=== PATIENT | male | born 1950 | race Caucasian/White ===

== ENCOUNTER → 2021-05-04 12:48 | Outpatient (BNVA) | payer BC, SELFPAY | PROVIDERS: PCP Internal Medicine; Visit Provider Nurse Practitioner Family | DX: G56.02 Carpal tunnel syndrome, left upper limb (principal); G43.109 Migraine with aura, not intractable, without status migrainosus; Z79.899 Other long term (current) drug therapy | CPT/HCPCS: 99212 ==

== ENCOUNTER 2024-09-20 13:10 | Outpatient (AMB) | payer BC, SELFPAY ==
--- OUTSIDE RECORDS SUMMARY | 2024-09-20 13:13 | XMS_ITS | Clinical Summary ---
Author Organization [address] [facility] Address [address] [place] [address] Phone Care Team Providers Care Bar Useful Or Busser Name Role Phone FranciscoPhil schneider Primary Care Provider [phone] Allergies Active Allergy Reactions Criticality Noted Date Comments Bee Venom Protein (Honey Bee) 06/20/2017 Lisinopril Other 05/26/2017 Pinching in throat Oxycodone Itching,Hives 05/26/2017 Medications ALPRAZolam (NIRAVAM) 0.25 mg dispersible tablet Take 0.25 mg by mouth at bedtime as needed. Active aspirin 81 mg EC tablet Take 81 mg by mouth daily. Active atorvastatin (LIPITOR) 40 mg tablet Take 40 mg by mouth daily. Active butalbital-aceta minophen-caffein e (ESGIC) 50-325-40 mg per capsule Take 1 Cap by mouth every 4 hours as needed. Active losartan (COZAAR) 50 mg tablet Take 50 mg by mouth daily. Active metFORMIN (GLUMETZA) 1,000 mg 24 hr tablet Take 1,000 mg by mouth 2 times daily. Active metoprolol succinate (TOPROL-XL) 25 mg 24 hr tablet TAKE 1/2 TABLET THREE TIMESDAILY (DOSE CHANGE, 5.23.24) 135 tablet 2 5 Active sertraline (ZOLOFT) 25 mg tablet Take 1.5 tablets (37.5 mg total) by mouth 1 (one) time each day. Active omeprazole (PriLOSEC) [address] capsule Take 1 capsule (20 mg total) by mouth 1 (one) time each day. Do not crush or chew. Active Active Problems Problem Noted Date Diagnosed Date Shortness of breath 04/26/2024 Assessment & Plan (07/20/2024 12:50 PM EDT): He had shortness of breath for 3 weeks few month ago and symptom has subsided spontaneously. There are no evidence of volume overload. I will check BNP level. Orders: ECG 12 lead B-type natriuretic peptide; Future Assessment & Plan (04/26/2024 12:04 PM EDT): Highly likely that this is in the setting of uncontrolled anxiety. The patient has no shortness of breath or anginal symptoms when he is exerting himself. He is extremely active and feels his best when he is exercising. He does inform me that he feels a short of breath when he is sedentary at home alone with his thoughts. He does endorse improvement in his symptoms after taking as needed lorazepam which is prescribed by his PCP. He had recent cardiac testing outlined above which was reassuring and we have again reviewed these results and the patient was grateful. Chest pain 02/16/2021 Overview (12/23/2023): Last Assessment & Plan: This is not angina. I suspect he could have premature heartbeats causing pounding sensation. There is no further ischemia work-up needed. I will schedule 24 hours Holter monitor. We will continue same medication. Assessment & Plan (07/20/2024 12:50 PM EDT): Intermittent punch sensation likely musculoskeletal discomfort. This is not angina. There is no need for further workup. Assessment & Plan (04/26/2024 12:04 PM EDT): Orders: ECG 12 lead Assessment & Plan (01/26/2024 4:45 PM EST): Chest pain was nonischemic and coronary artery CTA 2 years ago showed only minimal plaque. Alopecia 06/20/2017 Anxiety 06/20/2017 Assessment & Plan (04/26/2024 12:04 PM EDT): Patient does have significant anxiety. He is currently titrating medications such as Zoloft and alprazolam as he is hesitant to stay on these long-term because of potential side effects that he has researched. I did encourage him to continue to follow with his prescriber and to pursue other forms of anxiety management as it does appear most of his symptoms are driven by anxiety. Beta thalassemia ([facility] V24, [facility] V28) 08/2017 Carpal tunnel syndrome 06/20/2017 Overview (12/23/2023): 07/2012 NCS DDD (degenerative disc disease), cervical 2017 Diabetes mellitus type 2 wit h neurological manifestations ([facility] V24, [facility] V28) 06/20/2017 GERD (gastroesophageal reflux disease) 8 Hemochromatosis 06/20/2017 Hyperlipidemia 06/20/2017 Overview (12/23/2023): Last Assessment & Plan: Well-controlled. Assessment & Plan (04/26/2024 12:04 PM EDT): He will continue on his current dose of statin therapy. He recently had fasting lipid profile approximately 1 month ago with favorable results. Assessment & Plan (01/26/2024 4:45 PM EST): Will target LDL 100. Hypertension 06/20/2017 Overview (12/23/2023): Last Assessment & Plan: Well-controlled. Assessment & Plan (07/20/2024 12:50 PM EDT): Well-controlled. His elevated BP sometimes driven by his anxiety. Assessment & Plan (04/26/2024 12:04 PM EDT): Mildly elevated during today's exam with a reading of 140/70 however the patient is extremely anxious as outlined above. He did experience breathlessness on his drive down as he was anxious about being late. I am not making any changes to his antihypertensive medications at this time. Educated on the importance of diet lifestyle to help further assist in reducing blood pressure. The patient was encouraged to follow low-salt low-fat diet, make purposeful strides towards weight loss, and engage in routine aerobic exercise as tolerated. Assessment & Plan (01/26/2024 4:45 PM EST): Lower blood pressure was caused by combination of medications and dehydration. He has been off medication for BPH. If we need to medicate for BPH, we can reduce losartan dosage. Migraine 06/20/2017 Encounters Date Type Department Care Team Description 07/20/2024 9:50 AM EDT Office Visit [facility] - [address] [place] [id number] Lis Frias MD Shortness of breath (Primary Dx); Chest pain, unspecified type; Hypertension, unspecified type from Last 3 Months Immunizations Name Administration Dates Next Due Td Tetanus diptheria (Tdvax) 7yo and older 11/24 Surgical History Surgery Date Site/Laterality Comments TONSILLECTOMY PROCEDURE: HISTORICAL TONSILLECTOMY Medical History Medical History Date Comments Anxiety 06/20/2017 DX:Anxiety Diabetes mellitus type 2 wit h neurological manifestations (CMS/HCC V24, CMS/HCC V28) 06/20/2017 DX:Diabetes mellitus type 2 with neurological manifestations (HCC) Carpal tunnel syndrome 06/20/2017 DX:Carpal tunnel syndrome GERD (gastroesophageal reflux disease) 8 DX:GERD (gastroesophageal reflux disease) Hyperlipidemia 06/20/2017 DX:Hyperlipidemi a Migraine 06/20/2017 DX:Migraine Hemochromatosis 06/20/2017 DX:Hemochromatos is Beta thalassemia (CMS/HCC V2 4, CMS/HCC V28) 06/20/2017 DX:Beta thalassemia (HCC) Hypertension 06/20/2017 DX:Hypertension Alopecia 06/20/2017 DX:Alopecia DDD (degenerative disc disea se), cervical 06/20/2017 DX:DDD (degenerative disc di sease), cervical Anemia DX:Anemia Arthritis DX:Arthritis Frequent headaches DX:Frequent h eadaches Osteoarthritis DX:Osteoarthriti s Nauseous DX:Nauseous Family History Medical History Relation Name Comments Diabetes Mother Other cancer Other Stroke Other Relation Name Status Comments Mother Other Social History Tobacco Use Types Packs/Day Years Used Date Smoking Tobacco: Former Smokeless Tobacco: Never Alcohol Use Standard Drinks/Week Comments Yes 0 (1 standard drink = 0.6 oz pur e alcohol) Sex and Gender Information Value Date Recorded Sex Assigned at Not on file Legal Sex Male 9:37 AM EST Gender Identity Not on file Sexual Orientation Not on file Obstetrics History Last Filed Vital Signs Vital Sign Reading Time Taken Comments Blood Pressure 130/66 07/20/2024 9:29 AM EDT Pulse 69 07/20/2024 9:29 AM EDT Temperature - - Respiratory Rate - - Oxygen Saturation 97% 07/20/2024 9:29 AM EDT Inhaled Oxygen Concentration - - Weight 67.5 kg (148 lb 12.8 oz) 07/20/2024 9:29 AM EDT Height 170.2 cm (5' 7 ) 07/20/2024 9:29 AM EDT Body Mass Index 23.31 07/20/2024 9:29 AM EDT Plan of Treatment Health Maintenance Due Date Last Done Comments Diabetes: Annual Foot Exam 1962 Diabetes: Annual Retina Eye Exam 1962 Zoster Vaccines (1 of 2) 2002 RSV Immunization Adult Patients (1 - Risk 60-74 years 1-dose series) 2012 Pneumococcal Vaccine: 50+ Years (3 of 3 - PCV) 04/10/2017 04/10/2016, 09/23/2005 Abdominal Aortic Aneurysm (AAA) Screen 01/12/2022 Colorectal Cancer Screening: Colonoscopy 01/12/2022 Falls Risk Assessment 01/12/2022 Hepatitis C Screening 01/12/2022 Medicare Annual Wellness Visit 01/12/2022 Social Influencers of Health Screening 01/12/2022 Diabetes: Annual Urine Albumin-Creatinine Ratio (uACR) 11/25/2023 11/24/2022 Depression Screening 02/15/2024 COVID-19 Vaccine ( season) 2024 11/30/2023, 11/20/2022, 12/22/2021, Additional history exists Diabetes: Blood Sugar Control Test (HGBA1C) 09/25/2024 03/28/2024 Influenza Vaccine (#1) 2024 , 09/23/2017, 10/11/2016, Additional history exists Diabetes: Annual GFR (Glomerular Filtration Rate) 03/28/2025 03/28/2024, 11/14/2001 Hypertension/CHF/CAD Annual BMP Blood Test 03/28/2025 03/28/2024, 11/14/2001 DTaP,Tdap,and Td Vaccines (3 - Td or Tdap) 04/10/2026 04/10/2016, 11/24/2000 Cholesterol Screening (Lipid Panel) 03/28/2029 03/28/2024, 01/08/2002 HIB Vaccines Aged Out No longer eligi ble based on patient's age to complete this topic HPV Vaccines Aged Out No longer eligi ble based on patient's age to complete this topic Hepatitis A Vaccines Aged Out No long er eligible based on patient's age to complete this topic Hepatitis B Vaccines Aged Out No long er eligible based on patient's age to complete this topic IPV Vaccines Aged Out No longer eligi ble based on patient's age to complete this topic MMR Vaccines Aged Out No longer eligi ble based on patient's age to complete this topic Meningococcal ACWY Vaccine Aged Out N o longer eligible based on patient's age to complete this topic Meningococcal B Vaccine Aged Out No l onger eligible based on patient's age to complete this topic RSV Immunization Patients Under 20 months Aged Out No longer eligible based on patient's age to complete this topic Varicella Vaccines Aged Out No longer eligible based on patient's age to complete this topic Procedures Procedure Name Priority Date/Time Associated Diagnosis Comments B-TYPE NATRIURETIC PEPTIDE Routine 07/20/2024 10:18 AM EDT Shortness of breath ECG 12-LEAD Routine 07/20/2024 9:40 AM EDT Shortness of breath BASIC METABOLIC PANEL Routine 03/28/2024 10:07 AM EST Hyperlipemia Essential hypertension, malignant Diabetes mellitus (CMS/HCC V24, CMS/HCC V28) Coronary atherosclerosis of poarch coronary artery HEMOGLOBIN A1C Routine 03/28/2024 10:07 AM EST Hyperlipemia Essential hypertension, malignant Diabetes mellitus (CMS/HCC V24, CMS/HCC V28) Coronary atherosclerosis of poarch coronary artery LIPID PANEL WITH REFLEX TO DIRECT LDL Routine 03/28/2024 10:07 AM EST Hyperlipemia Essential hypertension, malignant Diabetes mellitus ([facility] V24, [facility] V28) Coronary atherosclerosis of poarch coronary artery from Last 3 Months or Most Recently Relevant to Health Maintenance Results * B-type natriuretic peptide (07/20/2024 10:18 AM EDT) BNP 75 <=100 pcg/mL LAB CHEMISTRY METHOD 07/20/2024 12:30 PM EDT [facility] Blood Venous blood specimen / Unknown Venipuncture / Unknown 07/20/2024 10:18 AM EDT 07/20/2024 11:34 AM EDT Lis Frias MD LAB BLOOD ORDERABLES Final Resul t Performing Organization Address [facility] Co de Phone Number [facility] [address] [place] [address], [place] [phone] * ECG 12 lead (07/20/2024 9:40 AM EDT) [facility] Ventricular Rate ECG 69 BPM GEMUSE Atrial Rate 69 BPM GEMUSE P-R Interval 134 ms GEMUSE QRS Duration 82 ms GEMUSE Q-T Interval 334 ms GEMUSE QTc 357 ms GEMUSE P Wave [place] 62 degrees GEMUSE R [place] 40 degrees GEMUSE T [place] -15 degrees GEMUSE ECG Interpretation Normal sinus rhythm Nonspecific T wave abnormality Abnormal ECG When compared with ECG of 26-APR-2024 10:08, No significant change was found Confirmed by Poncho FRIAS YUFENG ([id number]) on 07/20/2024 12:43:56 PM GEM[facility] 07/20/2024 9:40 AM EDT 07/20/2024 12:43 PM EDT Lis Frias MD ECG ORDERABLES Final Result Performing Organization Address [facility] Co de Phone Number GEMUSE * Lipid panel with reflex to direct LDL (03/28/2024 10:07 AM EST) Pathologist [facility] Cholesterol 136 0 - 200 mg/dL LAB CHEMISTRY METHOD 03/28/2024 11:29 AM EST [facility] Triglycerides 71 0 - 150 mg/dL LAB CHEMISTRY METHOD 03/28/2024 11:29 AM [facility] HDL 75 >=40 mg/dL LAB CHEMISTRY METHOD 03/28/2024 11:29 AM [facility] LDL Calculated 47 0 - 100 mg/dL LAB CHEMISTRY METHOD 03/28/2024 11:29 AM EST [facility] VLDL Cholesterol [place] 14.2 mg/dL LAB CHEMISTRY METHOD 03/28/2024 11:29 AM [facility] Non HDL Chol. (LDL+VLDL) 61 <145 mg/dL LAB CHEMISTRY METHOD 03/28/2024 11:29 AM [facility] Chol/HDL Ratio 1.8 0.0 - 4.4 LAB CHEMISTRY METHOD 03/28/2024 11:29 AM [facility] Blood Venous blood specimen / Unknown Venipuncture / Unknown 03/28/2024 10:07 AM EST 03/28/2024 10:08 AM EST Anuradha Espino [employer] LAB BLOOD ORDERABLES Fi nal Result [facility] [address] [place] [address], * Hemoglobin A1c (03/28/2024 10:07 AM EST) [facility] Hemoglobin A1C 6.4 <6.5 % LAB CHEMISTRY METHOD 03/28/2024 1:31 PM EST [facility] Mean Bld Glu Estim. 137 mg/dL LAB CHEMISTRY METHOD 03/28/2024 1:31 PM [facility] Blood Venous blood specimen / Unknown Venipuncture / Unknown 03/28/2024 10:07 AM EST 03/28/2024 10:08 AM EST us Anuradha Espino [employer] LAB BLOOD ORDERABLES Fi nal Result [facility] [address] [place] [address], [place] [phone] * (ABNORMAL) Basic metabolic panel (03/28/2024 10:07 AM EST) Sodium 139 133 - 145 mmol/L LAB CHEMISTRY METHOD 03/28/2024 11:29 AM [facility] Potassium 4.4 3.5 - 5.5 mmol/L LAB CHEMISTRY METHOD 03/28/2024 11:29 AM [facility] Chloride 106 96 - 110 mmol/L LAB CHEMISTRY METHOD 03/28/2024 11:29 AM [facility] CO2 26 21 - 32 mmol/L LAB CHEMISTRY METHOD 03/28/2024 11:29 AM [facility] Anion Gap 7 3 - 11 LAB CHEMISTRY METHOD 03/28/2024 11:29 AM [facility] Glucose 151(H) 70 - 100 mg/dL LAB CHEMISTRY METHOD 03/28/2024 11:29 AM [facility] BUN 17 5 - 25 mg/dL LAB CHEMISTRY METHOD 03/28/2024 11:29 AM [facility] Creatinine 0.77 0.70 - 1.30 mg/dL LAB CHEMISTRY METHOD 03/28/2024 11:29 AM [facility] eGFR 96 >=60 mL/min/1. 73m2 LAB CHEMISTRY METHOD 03/28/2024 11:29 AM [facility] Comment:Calculation based on the Chronic Kidney Disease Epidemiology Collaboration (CKD-EPI) equation refit without adjustment for race. BUN/Creatinine Ratio 22.1 LAB CHEMISTRY METHOD 03/28/2024 11:29 AM [facility] Calcium 9.4 8.5 - 10.5 mg/dL LAB CHEMISTRY METHOD 03/28/2024 11:29 AM EST [facility] Blood Venous blood specimen / Unknown Venipuncture / Unknown 03/28/2024 10:07 AM EST 03/28/2024 10:08 AM EST us Anuradha Espino [employer] LAB BLOOD ORDERABLES Fi nal Result [facility] ([facility]) [facility] [address] [place] [address], from Last 3 Months or Most Recently Relevant to Health Maintenance Insurance [employer] [place] MED[employer]ARE [employer]AGE Care Teams Bar Useful Or Busser Relationship Specialty Start Date End Date Phil Robles DO [address] [place] [phone] PCP - General Internal Medicine 02/05/21
--- OUTSIDE RECORDS SUMMARY | 2024-09-20 13:13 | XMS_ITS | Clinical Summary ---
Author Organization [facility] Address [address] [place] [id number] Phone Care Team Providers Care Industrial Service Technician Name Role Phone Franciscohaiann marieNicole garciaoliverio LNAE Primary Care Provider [phone] Nicole Sotomayor MD Unavailable Allergies Active Allergy Reactions Criticality Noted Date Comments Lisinopril 08/03/2018 Oxycodone Hives 08/03/2018 Medications aspirin 81 mg chewable tablet Take 81 mg by mouth daily. Active atorvastatin calcium (LIPITOR ORAL) Take 40 mg by mouth daily. Active losartan potassium (LOSARTAN ORAL) Take 50 mg by mouth daily. Active butalbital/aspiri n/caffeine (BUTALBITAL COMPOUND ORAL) Take by mouth daily as needed. 50 mg-325 mg- 40 mg- 1 tablet as needed. Active alprazolam (XANAX ORAL) Take 0.25 mg by mouth daily as needed. Active metoprolol succinate (TOPROL XL ORAL) Take 25 mg by mouth every morning. Take 12.5 mg in AM, 12.5 mg at noon, and take 12.5 mg in evening. Active vitamin A 67467 UNIT capsule Take 2,400 Units by mouth. Takes every 4-5 days Active omeprazole (PRILOSEC) 20 MG capsule Take 20 mg by mouth daily. Active sertraline (ZOLOFT) 50 MG tablet Take 50 mg by mouth daily. Active therapeutic multivitamin tablet Take 2 tablets by mouth daily. Men's 50+ Active b complex vitamins capsule Take 1 capsule by mouth daily. Active blood sugar diagnostic Strp stripsIndications :Type 2 diabetes mellitus with other ophthalmic complication, without long-term current use of insulin Test Sugar once a day 100 strip 3 4 Active metFORMIN (GLUCOPHAGE) 1000 MG tabletIndications :Type 2 diabetes mellitus with other ophthalmic complication, without long-term current use of insulin TAKE 1 TABLET TWICE DAILY WITH MEALS 180 tablet 1 5 Active Active Problems Problem Noted Date Diagnosed Date Well controlled type 2 diabetes mellitus 024 Assessment & Plan (07/01/2023 9:36 PM EDT): Good control by SMBG. Last A1c at target at 6.1% in 11/2022 by patient is taking metformin 1000 mg twice a day. [facility]. Weight is stable. Doing well with the meal plan and trying to stay active. Up-to-date with eye exam. History of nonproliferative diabetic retinopathy on the left eye which resolved as of report from retina specialist at [facility] on . Urine microalbumin to creatinine ratio is normal in 11/2022. Renal function remains normal. Blood pressure at target. Recent lipid profile is not available. No history of cardiovascular disease. Plan to continue current metformin dose. If A1c test is 6.5 or lower, may try decreasing the metformin to 1000 mg daily. Continue to work on healthy meal plan and regular exercise. Mild nonproliferative diabet ic retinopathy of both eyes without macular edema associated with type 2 diabetes mellitus 07/16/2021 Assessment & Plan (12/08/2022 12:36 PM EDT): Control is good based upon the patient's recall of his SMBG readings. He is not using any medications to cause hypoglycemia. Will request his recent blood work results. Will maintain his regimen until we can review the blood work. Continue to work on eating healthy and being active. To call or message with any issues managing his glucose levels. Up to date with ophtho. Labs ordered to be done prior to next visit Assessment & Plan (06/07/2022 5:27 PM EDT): Good control by recent SMBG. Had blood work on 05/26/2022, waiting for report. We will keep the 1000 mg metformin twice a day. Patient will confirm if he is taking the immediate release or extended release form. Continue to work on healthy meal plan and regular exercise. He is up-to-date with eye exam, report from Dr. Peter Segundo dated 04/29/2022 reviewed. He mentioned that patient had history of mild nonproliferative diabetic retinopathy but no signs on last exam. Advised to call if problems with blood sugars. He requested to mail him the lab results when received. Posterior vitreous detachment of both eyes 07/16 Family History Medical History Relation Comments Choroidal Nevus Maternal Grandmother Glaucoma Maternal Grandmother Cataracts Mother Diabetes Mother Glaucoma Mother Macular degeneration Mother Relation Status Comments Maternal Grandmother Mother Social History Tobacco Use Types Packs/Day Years Used Date Smoking Tobacco: Former Cigarettes 0.5 20 1 989 - 2008 Smokeless Tobacco: Never Tobacco Cessation:Counseling Given: Not Answered Alcohol Use Standard Drinks/Week Comments Not Currently 0 (1 standard drink = 0.6 oz pur e alcohol) social Education Answer Date Recorded Are you interested in more education? Not on jermaine e 06/15/2022 Are you concerned about learning? Not on file 06/15/2022 No 06/15/2022 No 06/15/2022 Digital Access Answer Date Recorded No 07/09/2022 No 07/09/2022 Reliable internet access at home? Not on file 07/09/2022 Device with a working camera? Not on file Sex and Gender Information Value Date Recorded Sex Assigned at Male 04/30/2019 11:50 AM EDT Legal Sex Male 6:26 PM EST Gender Identity Male 04/30/2019 11:50 AM EDT Sexual Orientation Straight 04/30/2019 11 :50 AM EDT Last Filed Vital Signs Vital Sign Reading Time Taken Comments Blood Pressure 120/60 06/20/2023 11:41 AM EDT Pulse 71 06/20/2023 11:41 AM EDT Temperature - - Respiratory Rate - - Oxygen Saturation 98% 06/20/2023 11: 41 AM EDT Inhaled Oxygen Concentration - - Weight 68.5 kg (151 lb) 06/20/2023 11:4 1 AM EDT with shoes Height 170.2 cm (5' 7 ) 06/20/2023 11:4 1 AM EDT patient reported Body Mass Index 23.65 06/20/2023 11:41 AM EDT Plan of Treatment Health Maintenance Due Date Last Done Comments HEMOGLOBIN A1C 1952 DEPRESSION SCREENING 1964 SMOKING Hx and SMOKELESS TOBACCO SCREENING 1965 HEPATITIS C SCREENING 1970 LIPID PANEL 1970 COLOGUARD 1997 COLONOSCOPY 1997 COLORECTAL CANCER SCREENING 1997 FIT TEST 1997 FOBT 1997 SIGMOIDOSCOPY 1997 VIRTUAL COLONOSCOPY 1997 ZOSTER VACCINES (1 of 2) 2002 PNEUMOCOCCAL VACCINES (50+ years) (2 of 2 - PCV) 04/10/2017 04/10/2016, 09/23/2005 ABDOMINAL AORTIC ANEURYSM (AAA) SCREENING 2017 DIABETIC EYE EXAM 04/30/2023 04/29/2022, , 04/29/2022, Additional history exists COVID-19 VACCINE ( season) 2023 01/07/2021, 05/15/2020, 04/24/2020 POTASSIUM LEVEL 11/25/2023 11/24/2022 BLOOD PRESSURE 12/21/2023 06/20/2023 CREATININE LEVEL 06/12/2024 06/13/2023, 12/2022, 06/09/2022 Adult Td,Tdap Booster 04/10/2026 04/10/2016, 001 RSV VACCINE (1 - 1-dose 75+ series) 09/09/2027 HEPATITIS A VACCINES Aged Out No long er eligible based on patient's age to complete this topic HIB VACCINES Aged Out No longer eligi ble based on patient's age to complete this topic MENINGOCOCCAL VACCINES (ACWY) Aged Out No longer eligible based on patient's age to complete this topic MENINGOCOCCAL VACCINES (B) Aged Out N o longer eligible based on patient's age to complete this topic Medical Devices Not on file Procedures Procedure Name Priority Date/Time Associated Diagnosis Comments COMPREHENSIVE METABOLIC PANEL Routine 06/13/2023 11:03 AM EDT Type 2 diabetes mellitus with other ophthalmic complication, without long-term current use of insulin BASIC METABOLIC PANEL Routine 11/24/2022 3:41 PM EDT Mild nonproliferative diabetic retinopathy of both eyes without macular edema associated with type 2 diabetes mellitus from Last 3 Months or Most Recently Relevant to Health Maintenance Results * Comprehensive metabolic panel (06/13/2023 11:03 AM EDT) Blood us Anastacia Larose MD LAB BLOOD ORDERABLES Final Res ult Performing Organization Address City/[facility]/ZIP Co de Phone Number EXTERNAL NON-INTERFACED REF LAB * Basic metabolic panel (11/24/2022 3:41 PM EDT) Blood us Elise Crain PA-C LAB BLOOD ORDERABL ES Final Result Performing Organization Address [facility] Co de Phone Number [address] [address] from Last 3 Months or Most Recently Relevant to Health Maintenance Insurance MEDICARE PPO BLUE REPLACEMENT MEDICARE PPO BLUE REPLACEMENT MEDICARE PPO BLUE REPLACEMENT MEDICARE PPO BLUE REPLACEMENT MEDICARE PPO BLUE REPLACEMENT Member Subscriber Plan / Payer (Ef fective 2017-Present) Name:Stefan Solorzano Relation to Subscriber:Self Name:Stefan Solorzano Payer ID:[id number] (NAIC) Type:Medicare Address: [address] [place], [place] MEDICARE PPO BLUE REPLACEMENT MEDICARE PPO BLUE REPLACEMENT MEDICARE PPO BLUE REPLACEMENT Member Subscriber Plan / Payer (Ef fective 2017-Present) Name:Stefan Solorzano Relation to Subscriber:Self Name:Stefan Solorzano Payer ID:[id number] (NAIC) Type:Medicare Address: [facility] [id number] [place], [place] BLUE REPLACEMENT Care Teams Industrial Service Technician Relationship Specialty Start Date End Date Phil Robles DO [address] [place] [phone] PCP - General Internal Medicine 07/24/18 Nicole Sotomayor MD [address] [place] [id number] Ophthalmology 04/17/20 Additional Source Comments The information contained in this document represents components of the legal health record. It is not the complete legal health record.[facility]
--- NOTE | 2024-09-20 13:24 | MHC.OFFVIS ---
Intake Visit Reasons: second opinion testicular swelling Intake Note: New patient presents today for initial visit for second opinion testicular swelling Urology Medication:None Blood Thinner:Aspirin Antibiotic Allergies:None Allergies aspirin Allergy (Mild, Verified 09/20/24 13:37) sensitivity bee pollen (bee stings) Allergy (Mild, Verified 09/20/24 13:37) Swelling lisinopril Allergy (Mild, Verified 09/20/24 13:37) Unknown oxycodone (From OxyContin) Allergy (Mild, Verified 09/20/24 13:37) Unknown Medication List - Last Reviewed 09/20/24 by Bridgette Harry alfuzosin ER 10 mg PO DAILY aspirin 81 mg PO DAILY atorvastatin 40 mg PO BEDTIME Brace,wrist Left cock-up carpal tunnel splint, apply qhs, remove qam hdyyfntowx-cqrhwqkmuoaqg-fvop 50-325-40 mg 1 tab PO Q4H PRN losartan 50 mg PO DAILY metformin 500 mg PO DAILY metoprolol succinate ER 12.5 mg PO DAILY ubrogepant 50 - 100 mg PO at onset of migraine, may repeat in 2 hours (max 200mg/day); 30 days vitamin E (dl, acetate) 450 mg PO DAILY 90 days HPI Comments Details: Stefan here for second opinion on testicular swelling. Add alfuzosin as an allergy History of Present Illness - The patient is a 74-year-old male presenting with evaluation of testicular swelling. - The swelling was first noticed a couple of months ago during a bath, with the right side appearing much larger than the left, although the testicles themselves felt the same size. - An ultrasound was performed, revealing bilateral epididymal cysts and bilateral hydroceles, with the right side being more pronounced. - The patient reports no significant discomfort or pain associated with the swelling. - The patient has a history of urinary hesitancy, with medication prescribed in the past, but he has not been taking any medication for several years. - A cystoscopy was performed previously due to a perceived hardness in the penis, but no obstruction was found. - The patient was informed about Peyronie's disease, which may cause curvature of the penis, but he has not noticed any significant curvature. - The patient has not had a PSA test in over a year and expressed interest in having one ordered. Results - Ultrasound: Bilateral epididymal cysts, bilateral hydroceles greater on the right, normal testicular Doppler with good blood flow, no testicular masses. Plan - Monitor the hydrocele for changes in size or discomfort; no immediate intervention required unless symptoms worsen. - Prescribe vitamin E for potential Peyronie's disease to help with any plaque formation. - Order a PSA test, advising the patient to avoid ejaculation for 48 hours prior to the test to prevent fluctuations in results. - Schedule a follow-up in three months to reassess the patient's condition and review ultrasound results of the prostate area. [facility] Medical History (Updated 09/20/24 @ 14:58 by Bridgette Harry) Cervical spine degeneration Alopecia HTN (hypertension) Beta thalassemia Hemochromatosis Migraines HLD (hyperlipidemia) GERD (gastroesophageal reflux disease) DM (diabetes mellitus), type 2 Anxiety Review of Systems Const All systems reviewed & are unremarkable except as noted in HPI and below Reports no additional complaints Eyes Reports no additional complaints ENT Reports no additional complaints Card Reports no additional complaints Resp Reports no additional complaints GI Reports no additional complaints Reports as per HPI Musc Reports no additional complaints Skin/Breast Reports system reviewed and no additional complaints, except as documented Neuro Reports no additional complaints Psych Reports no additional complaints Endo Reports no additional complaints Adrien/Lymph Reports no additional complaints Aller/Immun Reports no additional complaints Results AMB Urinalysis, Automated UA Leukoctes 0 Sarah/uL Last Edit by Bridgette Harry on 09/20/24 16:07 UA Nitrite Negative Last Edit by Bridgette Harry on 09/20/24 16:07 UA Urobilinogen 3.5 mg/dL Last Edit by Bridgette Harry on 09/20/24 16:07 UA Protein 1 mg/dL Last Edit by Bridgette Harry on 09/20/24 16:07 UA pH 6.0 Last Edit by Bridgette Harry on 09/20/24 16:07 UA Blood 0 Bruce/uL Last Edit by Bridgette Harry on 09/20/24 16:07 UA Specific [place] 1.025 Last Edit by Bridgette Harry on 09/20/24 16:07 UA Ketone Negative Last Edit by Bridgette Harry on 09/20/24 16:07 UA Bilirubin 0 mg/dL Last Edit by Bridgette Harry on 09/20/24 16:07 UA Glucose 0 mg/dL Last Edit by Bridgette Harry on 09/20/24 16:07 Assessment & Plan Assessment & Plan (1) Weak urinary stream: Code(s): R39.12 - Poor urinary stream Category: Medical (2) BPH loc w urin obs/LUTS: Code(s): N40.1 - Benign prostatic hyperplasia with lower urinary tract symptoms Category: Medical Orders: Orders US renal BI Today N40.1 - Benign prostatic hyperplasia with lower urinary tract symptoms, R39.12 - Poor urinary stream US bladder Today N40.1 - Benign prostatic hyperplasia with lower urinary tract symptoms, R39.12 - Poor urinary stream PSA,Total (Free>4and<10) Today N40.1 - Benign prostatic hyperplasia with lower urinary tract symptoms, R39.12 - Poor urinary stream AMB Urinalysis Automated Today N40.1 - Benign prostatic hyperplasia with lower urinary tract symptoms, R39.12 - Poor urinary stream Medications: New vitamin E (dl, acetate) 450 mg PO DAILY 90 days 90 caps 3RF Coding Diagnoses Weak urinary stream R39.12 BPH loc w urin obs/LUTS N40.1
== END 2024-09-20 14:06 | disposition home or self-care (01) ==
PROVIDERS: PCP Internal Medicine; Visit Provider Urology
DX: N40.1 Benign prostatic hyperplasia with lower urinary tract symptoms (principal); R39.12 Poor urinary stream

== ENCOUNTER → 2024-09-20 13:10 | Outpatient (BNVA) | payer BC, SELFPAY | PROVIDERS: PCP Internal Medicine; Visit Provider Urology | DX: N40.1 Benign prostatic hyperplasia with lower urinary tract symptoms (principal) | CPT/HCPCS: 81003 ==

== ENCOUNTER 2024-12-03 09:22 | Outpatient (REF) | payer MEDICARE, SELFPAY ==
--- OUTSIDE RECORDS SUMMARY | 2024-12-03 10:30 | XMS_ITS | Clinical Summary ---
Author Organization [facility] Address [address] [place] [phone] Phone Care Team Providers Care Advertising Operations Manager Name Role Phone Franciscohaiann marieNicole garciaoliverio LANE Primary Care Provider [phone] Nicole Sotomayor MD Unavailable [phone] Allergies Active Allergy Reactions Criticality Noted Date [...] 12.5 mg in evening. Active vitamin A 78278 UNIT capsule Take 2,400 Units by mouth. [...] day. [facility], [facility]. Weight is stable. Doing well with the meal plan and trying to stay active. Up-to-date with eye exam. History of nonproliferative diabetic retinopathy on the left eye which resolved as of report from retina specialist at [facility] on . Urine microalbumin to [...] 04/30/2023 04/29/2022, , 04/29/2022, Additional history exists POTASSIUM LEVEL 11/25/2023 11/24/2022 BLOOD PRESSURE 12/21/2023 06/20/2023 CREATININE LEVEL 06/12/2024 06/13/2023, 12/2022, 06/09/2022 INFLUENZA VACCINE (#1) 2024 8, 10/11/2016, 09/24/2015, Additional history exists COVID-19 VACCINE ( season) 2024 01/07/2021, 05/15/2020, 04/24/2020 Adult Td,Tdap Booster 04/10/2026 04/10/2016, 001 RSV [...] ORDERABLES Final Res ult Performing Organization Address [facility]/ZIP Co de Phone Number EXTERNAL NON-INTERFACED REF LAB * Basic metabolic panel (11/24/2022 3:41 PM EDT) Blood us Elise Crain PA-C LAB BLOOD ORDERABL ES Final Result Performing Organization Address [facility] Co de Phone Number [address] [address] from Last 3 Months or Most Recently Relevant to Health Maintenance Insurance MEDICARE PPO BLUE REPLACEMENT MEDICARE PPO BLUE REPLACEMENT MEDICARE PPO BLUE REPLACEMENT MEDICARE PPO BLUE REPLACEMENT MEDICARE PPO BLUE REPLACEMENT MEDICARE PPO BLUE REPLACEMENT MEDICARE PPO BLUE REPLACEMENT MEDICARE PPO BLUE REPLACEMENT [place] BLUE REPLACEMENT Care Teams Advertising Operations Manager Relationship Specialty Start Date End Date Phil Robles DO [address] [place] [phone] PCP - General Internal Medicine 07/24/18 Nicole Sotomayor MD [address] [place] [id number] Ophthalmology 04/17/20 Additional Source Comments The information contained in this document represents components of the legal health record. It is not the complete legal health record.[facility]
--- OUTSIDE RECORDS SUMMARY | 2024-12-03 10:30 | XMS_ITS | Clinical Summary ---
Author Organization [address] [facility] Address [address] [place] [address] Phone Care Team Providers Care Health Promoter Name Role Phone Phil Robles Primary Care Provider [phone] Allergies Active Allergy Reactions Criticality Noted Date [...] symptoms are driven by anxiety. Beta thalassemia ([facility] V24, [facility] V28) 08/2017 Carpal tunnel syndrome 06/20/2017 Overview (12/23/2023): 07/2012 NCS DDD (degenerative disc disease), cervical 2017 Diabetes mellitus type 2 wit h neurological manifestations ([facility] V24, [facility] V28) 06/20/2017 GERD (gastroesophageal reflux disease) [...] we can reduce losartan dosage. Migraine 06/20/2017 Immunizations Immunization Administration Dates Next Due Td Tetanus diptheria [...] V2 4, CMS/HCC V28) 06/20/2017 DX:Beta thalassemia ([facility]) Hypertension 06/20/2017 DX:Hypertension Alopecia 06/20/2017 DX:Alopecia DDD [...] Health Maintenance Due Date Last Done Comments Colorectal Cancer Screening: Colonoscopy 1952 Diabetes: Annual Foot Exam 1962 Diabetes: Annual Retina Eye Exam 1962 RSV Immunization Adult Patients (1 - Risk 50-74 years 1-dose series) 2002 Zoster Vaccines (1 of 2) 2002 Pneumococcal Vaccine: 50+ Years (3 of 3 - PCV) 04/10/2017 04/10/2016, 09/23/2005 Abdominal Aortic Aneurysm (AAA) Screen 01/12/2022 Falls Risk Assessment 01/12/2022 Hepatitis C Screening 01/12/2022 Medicare Annual Wellness Visit 01/12/2022 Social Influencers of Health Screening 01/12/2022 Depression Screening 02/15/2024 COVID-19 Vaccine ( season) 2024 11/30/2023, 11/20/2022, 12/22/2021, Additional history exists Influenza Vaccine (#1) 2024 , 09/23/2017, 10/11/2016, Additional history exists Diabetes: Blood Sugar Control Test (HGBA1C) 04/28/2025 10/29/2024, 03/28/2024 Diabetes: Annual Urine Albumin-Creatinine Ratio (uACR) 10/29/2025 10/29/2024, 11/24/2022 Diabetes: Annual GFR (Glomerular Filtration Rate) 10/29/2025 10/29/2024, 03/28/2024, 11/14/2001 Hypertension/CHF/CAD Annual BMP Blood Test 10/29/2025 10/29/2024, 03/28/2024, 11/14/2001 DTaP,Tdap,and Td Vaccines (3 - Td or Tdap) 04/10/2026 04/10/2016, 11/24/2000 Cholesterol Screening (Lipid Panel) 10/29/2029 10/29/2024, 03/28/2024, 01/08/2002 HIB Vaccines Aged Out No [...] Procedure Name Priority Date/Time Associated Diagnosis Comments CBC WITH AUTO DIFFERENTIAL Routine 10/29/2024 1:30 PM EDT Diabetes mellitus (CMS/HCC V24, CMS/HCC V28) Essential hypertension, malignant Hyperlipemia HEMOGLOBIN A1C Routine 10/29/2024 1:30 PM EDT Diabetes mellitus (CMS/HCC V24, CMS/HCC V28) Essential hypertension, malignant Hyperlipemia MICROALBUMIN CREATININE URINE RATIO Routine 10/29/2024 1:30 PM EDT Diabetes mellitus (CMS/HCC V24, CMS/HCC V28) Essential hypertension, malignant Hyperlipemia COMPREHENSIVE METABOLIC PANEL Routine 10/29/2024 1:30 PM EDT Diabetes mellitus (CMS/HCC V24, CMS/HCC V28) Essential hypertension, malignant Hyperlipemia CBC AND DIFFERENTIAL Routine 10/29/2024 1:30 PM EDT Diabetes mellitus (CMS/HCC V24, CMS/HCC V28) Essential hypertension, malignant Hyperlipemia THYROID STIMULATING HORMONE Routine 10/29/2024 1:30 PM EDT Diabetes mellitus (CMS/HCC V24, CMS/HCC V28) Essential hypertension, malignant Hyperlipemia PROSTATE SPECIFIC ANTIGEN SCREEN Routine 10/29/2024 1:30 PM EDT Diabetes mellitus (CMS/HCC V24, CMS/HCC V28) Essential hypertension, malignant Hyperlipemia Encounter for screening for malignant neoplasm of prostate LIPID PANEL WITH REFLEX TO DIRECT LDL Routine 10/29/2024 1:30 PM EDT Diabetes mellitus (CMS/HCC V24, CMS/HCC V28) Essential hypertension, malignant Hyperlipemia from Last 3 Months Results * Prostate specific antigen screen (10/29/2024 1:30 PM EDT) PSA 2.17 0.00 - 4.00 ng/mL LAB CHEMISTRY METHOD 10/29/2024 4:59 PM EDT [facility] Blood Venous blood specimen / Unknown Venipuncture / Unknown 10/29/2024 1:30 PM EDT 10/29/2024 1:30 PM EDT Narrative [facility] - 10/29/2024 4:59 PM EDT The Siemens Advia Centaur Chemiluminescent Immunoassay is used. Results obtained with different assay methods or kits cannot be used interchangeably. Results cannot be interpreted as absolute evidence of the presence or absence of malignant disease. us Anuradha Espino NP LAB BLOOD ORDERABLES Fi nal Result [facility] [address] [place] [address], * Lipid panel with reflex to direct LDL (10/29/2024 1:30 PM EDT) Cholesterol 153 0 - 200 mg/dL LAB CHEMISTRY METHOD 10/29/2024 4:21 PM EDT [facility] Triglycerides 148 0 - 150 mg/dL LAB CHEMISTRY METHOD 10/29/2024 4:21 PM EDT [facility] HDL 71 >=40 mg/dL LAB CHEMISTRY METHOD 10/29/2024 4:21 PM EDT [facility] LDL Calculated 52 0 - 100 mg/dL LAB CHEMISTRY METHOD 10/29/2024 4:21 PM EDT [facility] Comment:Estimated LDL Calcul ated using equation: Total cholesterol - HDL cholesterol - (Triglycerides/5) VLDL Cholesterol Duarte 29.6 mg/dL LAB CHEMISTRY METHOD 10/29/2024 4:21 PM EDT [facility] Non HDL Chol. (LDL+VLDL) 82 <145 mg/dL LAB CHEMISTRY METHOD 10/29/2024 4:21 PM EDT [facility] Chol/HDL Ratio 2.2 0.0 - 4.4 LAB CHEMISTRY METHOD 10/29/2024 4:21 PM EDT [facility] Blood Venous blood specimen / Unknown Venipuncture / Unknown 10/29/2024 1:30 PM EDT 10/29/2024 1:30 PM EDT Anuradha Espino [employer] LAB BLOOD ORDERABLES Fi nal Result [facility] [address] [place] [address], * (ABNORMAL) CBC auto differential (10/29/2024 1:30 PM EDT) WBC 7.4 4.8 - 10.8 K/mcL LAB HEMETOLOGY METHOD 10/29/2024 3:06 PM EDT [facility] RBC 5.40 4.50 - 5.50 M/mcL LAB HEMETOLOGY METHOD 10/29/2024 3:06 PM EDT [facility] Hemoglobin 11.7(L) 13.5 - 17.5 g/dL LAB HEMETOLOGY METHOD 10/29/2024 3:06 PM EDT [facility] Hematocrit 37.0(L) 42.0 - 54.0 % LAB [facility]OLOGY [facility]24 [facility] MCV 68.9(L) 79.0 - 98.0 FL LAB HEMETOLOGY METHOD 10/29[facility]2024 3[facility] MCH 21.8(L) 27.0 - 32.0 pcg LAB HEMETOLOGY METHOD 10/29/2024 3:06 PM [facility] MCHC 31.6(L) 32.0 - 37.0 g/dL LAB HEMETOLOGY METHOD 10/29/2024 3:06 PM [facility] RDW 15.6(H) 11.0 - 15.0 % LAB HEMETOLOGY METHOD 10/29/2024 3[facility] Platelets 240 130 - 400 K/mcL LAB HEMETOLOGY METHOD 10/29/2024 3:06 PM [facility] MPV 11.3(H) 7.0 - 11.0 FL LAB HEMETOLOGY METHOD 10/29/2024 3:06 PM [facility] NRBC 0.0 <1.0 % LAB HEMETOLOGY METHOD 10/29/2024 3:[facility] NRBC Absolute 0.00 <0.10 K/mcL LAB HEMETOLOGY METHOD 10/29/2024 3:[facility] Neutrophils Relative 63.0 % LAB HEMETOLOGY METHOD 10/29/2024 3:06 PM [facility] Lymphocytes Relative 26.7 % LAB HEMETOLOGY METHOD 10/29/2024 3:06 PM [facility] Monocytes Relative 7.6 % LAB HEMETOLOGY METHOD 10/29/2024 3:06 PM EDT [facility] Eosinophils Relative 1.8 % LAB HEMETOLOGY METHOD 10/29/2024 3:06 PM EDT [facility] Basophils Relative 0.5 % LAB HEMETOLOGY METHOD 10/29/2024 3:06 PM EDT [facility] Immature Granulocytes Relative 0.4 % LAB HEMETOLOGY METHOD 10/29/2024 3:06 PM EDT [facility] Neutrophils Absolute 4.64 1.50 - 7.00 K/mcL LAB HEMETOLOGY METHOD 10/29/2024 3:06 PM EDT [facility] Lymphocytes Absolute 1.97 1.00 - 5.00 K/mcL LAB HEMETOLOGY METHOD 10/29/2024 3:06 PM EDT [facility] Monocytes Absolute 0.56 0.20 - 1.00 K/mcL LAB HEMETOLOGY METHOD 10/29/2024 3:06 PM EDT [facility] Eosinophils Absolute 0.13 0.00 - 0.50 K/mcL LAB HEMETOLOGY METHOD 10/29/2024 3:06 PM EDT [facility] Basophils Absolute 0.04 0.00 - 0.20 K/mcL LAB HEMETOLOGY METHOD 10/29/2024 3:06 PM EDT [facility] Immature Granulocytes Absolute 0.03 0.00 - 0.03 K/mcL LAB HEMETOLOGY METHOD 10/29/2024 3:06 PM EDT [facility] Blood Venous blood specimen / Unknown Venipuncture / Unknown 10/29/2024 1:30 PM EDT 10/29/2024 1:30 PM EDT us Anuradha Espino NP LAB BLOOD ORDERABLES Fi nal Result [facility] [address] [place] [address], [place] [phone] * (ABNORMAL) Microalbumin creatinine urine ratio (10/29/2024 1:30 PM EDT) Creatinine, Urine 247.0 mg/dL LAB CHEMISTRY METHOD 10/29/2024 4:29 PM EDT [facility] Microalb, Ur 34.6(H) 0.0 - 29.0 mg/L LAB CHEMISTRY METHOD 10/29/2024 4:29 PM EDT [facility] Microalb/Crea t Ratio 14 <30 mg/g creat LAB CHEMISTRY METHOD 10/29/2024 4:29 PM EDT [facility] Urine Urine specimen obtained by clean catch procedure / Unknown Non-blood Collection / Unknown 10/29/2024 1:30 PM EDT 10/29/2024 1:30 PM EDT us Anuradha Espino NP LAB URINE ORDERABLES Fi nal Result [facility] [address] [place] [address], [place] [phone] * Thyroid stimulating hormone (10/29/2024 1:30 PM EDT) Pathologist [facility] TSH 1.21 0.40 - 4.00 mcIU/mL LAB CHEMISTRY METHOD 10/29/2024 5:50 PM EDT [facility] Blood Venous blood specimen / Unknown Venipuncture / Unknown 10/29/2024 1:30 PM EDT 10/29/2024 1:30 PM EDT us Anuradha Espino NP LAB BLOOD ORDERABLES Fi nal Result [facility] [address] [place] [address], [place] [phone] * (ABNORMAL) Hemoglobin A1c (10/29/2024 1:30 PM EDT) [facility] Hemoglobin A1C 7.0(H) <6.5 % LAB CHEMISTRY METHOD 10/29/2024 9:57 PM EDT [facility] Mean Bld Glu Estim. 154 mg/dL LAB CHEMISTRY METHOD 10/29/2024 9:57 PM T [facility] Blood Venous blood specimen / Unknown Venipuncture / Unknown 10/29/2024 1:30 PM EDT 10/29/2024 1:30 PM EDT us Anuradha Espino [employer] LAB BLOOD ORDERABLES Fi nal Result [facility] [address] [place] [address], [place] [phone] * (ABNORMAL) Comprehensive metabolic panel (10/29/2024 1:30 PM EDT) [facility] Sodium 139 133 - 145 mmol/L LAB CHEMISTRY METHOD 10/29/2024 4:21 PM [facility] Potassium 4.7 3.5 - 5.5 mmol/L LAB CHEMISTRY METHOD 10/29/2024 4:21 PM [facility] Chloride 104 96 - 110 mmol/L LAB CHEMISTRY METHOD 10/29/2024 4:21 PM [facility] CO2 26 21 - 32 mmol/L LAB CHEMISTRY METHOD 10/29/2024 4:21 PM [facility] Anion Gap 9 3 - 11 LAB CHEMISTRY METHOD 10/29/2024 4:21 PM [facility] Glucose 171(H) 70 - 100 mg/dL LAB CHEMISTRY METHOD 10/29/2024 4:21 PM [facility] BUN 16 5 - 25 mg/dL LAB CHEMISTRY METHOD 10/29/2024 4:21 PM [facility] Creatinine 0.86 0.70 - 1.30 mg/dL LAB CHEMISTRY METHOD 10/29/2024 4:21 PM [facility] eGFR 92 >=60 mL/min/1. 73m2 LAB CHEMISTRY METHOD 10/29/2024 4:21 PM [facility] Comment:Calculation based on the Chronic Kidney Disease Epidemiology Collaboration (CKD-EPI) equation refit without adjustment for race. BUN/Creatinine Ratio 18.6 LAB CHEMISTRY METHOD 10/29/2024 4:21 PM [facility] Calcium 9.2 8.5 - 10.5 mg/dL LAB CHEMISTRY METHOD 10/29/2024 4:21 PM [facility] AST (SGOT) 25 10 - 42 unit/L LAB CHEMISTRY METHOD 10/29/2024 4:21 PM [facility] ALT (SGPT) 39 10 - 60 unit/L LAB CHEMISTRY METHOD 10/29/2024 4:21 PM [facility] Alkaline Phosphatase 71 42 - 121 unit/L LAB CHEMISTRY METHOD 10/29/2024 4:21 PM [facility] Total Protein 6.6 6.0 - 8.0 g/dL LAB CHEMISTRY METHOD 10/29/2024 4:21 PM [facility] Albumin 3.9 3.2 - 5.0 g/dL LAB CHEMISTRY METHOD 10/29/2024 4:21 PM [facility] Total Bilirubin 0.4 0.0 - 1.4 mg/dL LAB CHEMISTRY METHOD 10/29/2024 4:21 PM [facility] Blood Venous blood specimen / Unknown Venipuncture / Unknown 10/29/2024 1:30 PM EDT 10/29/2024 1:30 PM EDT us Anuradha Espino NP LAB BLOOD ORDERABLES Fi nal Result [facility] [address] [place] [address], [place] [phone] from Last 3 Months Insurance [employer] - [place] MEDICARE ADVANTAGE Care Teams Health Promoter Relationship Specialty Start Date End Date Phil Robles DO [address] [place] [phone] PCP - General Internal Medicine 02/05/21
[2024-12-03 13:44] LABS: PSA,Total (Free>4and<10) 2.28 ng/mL (0.00-4.00)
== END 2024-12-03 09:23 | disposition home or self-care (01) ==
LOC: HO.HKASLDS 09:22
PROVIDERS: PCP Internal Medicine; Visit Provider Urology
DX: N40.1 Benign prostatic hyperplasia with lower urinary tract symptoms (principal); R39.12 Poor urinary stream; Z12.5 Encounter for screening for malignant neoplasm of prostate
CPT/HCPCS: 36415; 84153

== ENCOUNTER 2024-12-10 10:51 | Outpatient (REF) | payer MEDICARE, SELFPAY ==
--- NOTE | ~2024-12-10 | US_ITS ---
CLINICAL HISTORY: R39.12 - Poor urinary stream US kidneys and bladder Comparison: None provided Findings: Right kidney 11.9 cm length. No significant focal abnormality. Left kidney 13.1 cm length. No significant focal abnormality. 1.1 cm x 1.2 cm midpole cyst. No bilateral hydronephrosis. Normal bilateral renal echogenicity. The urinary bladder is unremarkable. Prevoid volume 167 mL. Post void volume 14 mL. Bilateral ureteral jets visualized. Impression: No significant abnormalities Ultrasound prostate gland Comparison: None provided Findings: Heterogeneous enlarged prostate with calcification. Prostate measures 4.4 x 4.7 x 5.4 cm. Prostate volume: 59 mL. Prostate is multinodular in appearance. 1.7 cm discrete nodule noted. Consider MRI to assess. Impression: Enlarged heterogeneous nodular prostate Consider MRI if malignancy suspected This document has been electronically signed by: Stuart Art MD on 12/10/2024 22:29:48
--- OUTSIDE RECORDS SUMMARY | 2024-12-10 13:29 | XMS_ITS | Clinical Summary ---
Author Organization [facility] Address [address] [place] [phone] Phone Care Team Providers Care Silver Miner Name Role Phone Franciscohaiann marieNicole garciaoliverio LANE Primary Care Provider [phone] Nicole Sotomayor MD Unavailable Allergies Active Allergy [...] 12.5 mg in evening. Active vitamin A 05186 UNIT capsule Take 2,400 Units by mouth. [...] day. [facility]. Weight is stable. Doing well with the meal plan and trying to stay active. Up-to-date with eye exam. History of nonproliferative diabetic retinopathy on the left eye which resolved as of report from retina specialist at [facility] and [facility] on . Urine microalbumin to [...] ORDERABLES Final Res ult Performing Organization Address [facility]/ZIP Co de Phone Number EXTERNAL NON-INTERFACED REF LAB * Basic metabolic panel (11/24/2022 3:41 PM EDT) Blood us Elise Crain PA-C LAB BLOOD ORDERABL ES Final Result Performing Organization Address [facility] Co de Phone Number [address] [phone] from Last 3 Months or Most Recently Relevant to Health Maintenance Insurance MEDICARE PPO BLUE REPLACEMENT MEDICARE PPO BLUE REPLACEMENT MEDICARE PPO BLUE REPLACEMENT MEDICARE PPO BLUE REPLACEMENT MEDICARE PPO BLUE REPLACEMENT MEDICARE PPO BLUE REPLACEMENT MEDICARE PPO BLUE REPLACEMENT MEDICARE PPO BLUE REPLAC[place] P[place] BLUE REPLACEMENT Care Teams Silver Miner Relationship Specialty Start Date End Date Phil Robles DO [address] [place] [phone] PCP - General Internal Medicine 07/24/18 Nicole Sotomayor MD [address] [place] [id number] Ophthalmology 04/17/20 Additional Source Comments The information contained in this document represents components of the legal health record. It is not the complete legal health record.[facility]
--- OUTSIDE RECORDS SUMMARY | 2024-12-10 13:29 | XMS_ITS | Clinical Summary ---
Author Organization [address] [facility] Address [address] [place] [address] Phone Care Team Providers Care Belt Loop Machine Operator Name Role Phone FranciscoPhil schneider Primary Care Provider [phone] Allergies Active Allergy Reactions Criticality Noted Date [...] symptoms are driven by anxiety. Beta thalassemia ([facility] V24, [facility] V28) 08/2017 Carpal tunnel syndrome 06/20/2017 Overview (12/23/2023): 07/2012 NCS DDD (degenerative disc disease), cervical 2017 Diabetes mellitus type 2 wit h neurological manifestations ([facility] V24, [facility] V28) 06/20/2017 GERD (gastroesophageal reflux disease) [...] V2 4, CMS/HCC V28) 06/20/2017 DX:Beta thalassemia ([facility]) Hypertension 06/20/2017 DX:Hypertension Alopecia 06/20/2017 DX:Alopecia [...] LAB CHEMISTRY METHOD 10/29/2024 4:59 PM EDT [facility] Blood Venous blood specimen / Unknown Venipuncture / Unknown 10/29/2024 1:30 PM EDT 10/29/2024 1:30 PM EDT Narrative [facility] - 10/29/2024 4:59 PM EDT The Siemens Advia Centaur Chemiluminescent Immunoassay is used. Results obtained with different assay methods or kits cannot be used interchangeably. Results cannot be interpreted as absolute evidence of the presence or absence of malignant disease. us Anuradha Espino NP LAB BLOOD ORDERABLES Fi nal Result [facility] [address] [place] [address], * Lipid panel with reflex to direct LDL (10/29/2024 1:30 PM EDT) Cholesterol 153 0 - 200 mg/dL LAB CHEMISTRY METHOD 10/29/2024 4:21 PM EDT [facility] Triglycerides 148 0 - 150 mg/dL LAB CHEMISTRY METHOD 10/29/2024 4:21 PM EDT [facility] HDL 71 >=40 mg/dL LAB CHEMISTRY METHOD 10/29/2024 4:21 PM EDT [facility] LDL Calculated 52 0 - 100 mg/dL LAB CHEMISTRY METHOD 10/29/2024 4:21 PM EDT [facility] Comment:Estimated LDL Calcul ated using equation: Total cholesterol - HDL cholesterol - (Triglycerides/5) VLDL Cholesterol Duarte 29.6 mg/dL LAB CHEMISTRY METHOD 10/29/2024 4:21 PM EDT [facility] Non HDL Chol. (LDL+VLDL) 82 <145 mg/dL LAB CHEMISTRY METHOD 10/29/2024 4:21 PM EDT [facility] Chol/HDL Ratio 2.2 0.0 - 4.4 LAB CHEMISTRY METHOD 10/29/2024 4:21 PM EDT [facility] Blood Venous blood specimen / Unknown Venipuncture / Unknown 10/29/2024 1:30 PM EDT 10/29/2024 1:30 PM EDT Anuradha Espino TELLER COORDINATOR LAB BLOOD ORDERABLES Fi nal Result [facility] [address] [place] [address], * (ABNORMAL) CBC auto differential (10/29/2024 1:30 PM EDT) WBC 7.4 4.8 - 10.8 K/mcL LAB HEMETOLOGY METHOD 10/29/2024 3:06 PM EDT [facility] RBC 5.40 4.50 - 5.50 M/mcL LAB HEMETOLOGY METHOD 10/29/2024 3:06 PM EDT [facility] Hemoglobin 11.7(L) 13.5 - 17.5 g/dL LAB HEMETOLOGY METHOD 10/29/2024 3:06 PM EDT [facility] Hematocrit 37.0(L) 42.0 - 54.0 % LAB [facility]ETOLOGY [facility]29[facility]2024 3[facility] MCV 68.9(L) 79.0 - 98.0 FL LAB HEMETOLOGY METHOD 10/29/2024 3:[facility] PM [facility] MCH 21.8(L) 27.0 - 32.0 pcg LAB HEMETOLOGY METHOD 10/29/2024 3:06 PM [facility] MCHC 31.6(L) 32.0 - 37.0 g/dL LAB HEMETOLOGY METHOD 10/29/2024 3:06 PM [facility] RDW 15.6(H) 11.0 - 15.0 % LAB HEMETOLOGY METHOD 10/29/2024 3:[facility] Platelets 240 130 - 400 K/mcL LAB HEMETOLOGY METHOD 10/29/2024 3:06 PM [facility] MPV 11.3(H) 7.0 - 11.0 FL LAB HEMETOLOGY METHOD 10/29/2024 3:06 PM [facility] NRBC 0.0 <1.0 % LAB HEMETOLOGY METHOD 10/29/2024 3:06 [facility] NRBC Absolute 0.00 <0.10 K/mcL LAB HEMETOLOGY METHOD 10/29/2024 3:06 PM [facility] Neutrophils Relative 63.0 % LAB HEMETOLOGY METHOD 10/29/2024 3:06 PM [facility] Lymphocytes Relative 26.7 % LAB HEMETOLOGY METHOD 10/29/2024 3:06 PM [facility] Monocytes Relative 7.6 % LAB HEMETOLOGY METHOD 10/29/2024 3:06 PM EDT [facility] Eosinophils Relative 1.8 % LAB HEMETOLOGY METHOD 10/29/2024 3:06 PM EDT [facility] Basophils Relative 0.5 % LAB HEMETOLOGY METHOD 10/29/2024 3:06 PM EDT [facility] Immature Granulocytes Relative 0.4 % LAB HEMETOLOGY METHOD 10/29/2024 3:06 PM EDT [facility] Neutrophils Absolute 4.64 1.50 - 7.00 K/mcL LAB HEMETOLOGY METHOD 10/29/2024 3:06 PM EDT [facility] Lymphocytes Absolute 1.97 1.00 - 5.00 K/mcL LAB HEMETOLOGY METHOD 10/29/2024 3:06 PM EDT [facility] Monocytes Absolute 0.56 0.20 - 1.00 K/mcL LAB HEMETOLOGY METHOD 10/29/2024 3:06 PM EDT [facility] Eosinophils Absolute 0.13 0.00 - 0.50 K/mcL LAB HEMETOLOGY METHOD 10/29/2024 3:06 PM EDT [facility] Basophils Absolute 0.04 0.00 - 0.20 K/mcL LAB HEMETOLOGY METHOD 10/29/2024 3:06 PM EDT [facility] Immature Granulocytes Absolute 0.03 0.00 - 0.03 K/mcL LAB HEMETOLOGY METHOD 10/29/2024 3:06 PM EDT [facility] Blood Venous blood specimen / Unknown Venipuncture / Unknown 10/29/2024 1:30 PM EDT 10/29/2024 1:30 PM EDT us Anuradha Espino NP LAB BLOOD ORDERABLES Fi nal Result [facility] [address] [place] [address], [place] [phone] * (ABNORMAL) Microalbumin creatinine urine ratio (10/29/2024 1:30 PM EDT) Creatinine, Urine 247.0 mg/dL LAB CHEMISTRY METHOD 10/29/2024 4:29 PM EDT [facility] Microalb, Ur 34.6(H) 0.0 - 29.0 mg/L LAB CHEMISTRY METHOD 10/29/2024 4:29 PM EDT [facility] Microalb/Crea t Ratio 14 <30 mg/g creat LAB CHEMISTRY METHOD 10/29/2024 4:29 PM EDT [facility] Urine Urine specimen obtained by clean catch procedure / Unknown Non-blood Collection / Unknown 10/29/2024 1:30 PM EDT 10/29/2024 1:30 PM EDT us Anuradha Espino NP LAB URINE ORDERABLES Fi nal Result [facility] [address] [place] [address], [place] [phone] * Thyroid stimulating hormone (10/29/2024 1:30 PM EDT) Pathologist [facility] TSH 1.21 0.40 - 4.00 mcIU/mL LAB CHEMISTRY METHOD 10/29/2024 5:50 PM EDT [facility] Blood Venous blood specimen / Unknown Venipuncture / Unknown 10/29/2024 1:30 PM EDT 10/29/2024 1:30 PM EDT us Anuradha Espino NP LAB BLOOD ORDERABLES Fi nal Result [facility] [address] [place] [address], [place] [phone] * (ABNORMAL) Hemoglobin A1c (10/29/2024 1:30 PM EDT) [facility] Hemoglobin A1C 7.0(H) <6.5 % LAB CHEMISTRY METHOD 10/29/2024 9:57 PM EDT [facility] Mean Bld Glu Estim. 154 mg/dL LAB CHEMISTRY METHOD 10/29/2024 9:57 PM T [facility] Blood Venous blood specimen / Unknown Venipuncture / Unknown 10/29/2024 1:30 PM EDT 10/29/2024 1:30 PM EDT us Anuradha Espino TELLER COORDINATOR LAB BLOOD ORDERABLES Fi nal Result [facility] [address] [place] [address], [place] [phone] * (ABNORMAL) Comprehensive metabolic panel (10/29/2024 1:30 PM EDT) [facility] Sodium 139 133 - 145 mmol/L LAB CHEMISTRY METHOD 10/29/2024 4:21 PM [facility] Potassium 4.7 3.5 - 5.5 mmol/L LAB CHEMISTRY METHOD 10/29/2024 4:21 PM [facility] Chloride 104 96 - 110 mmol/L LAB CHEMISTRY METHOD 10/29/2024 4:21 PM [facility] CO2 26 21 - 32 mmol/L LAB CHEMISTRY METHOD 10/29/2024 4:21 PM [facility] Anion Gap 9 3 - 11 LAB CHEMISTRY METHOD 10/29/2024 4:21 PM [facility] Glucose 171(H) 70 - 100 mg/dL LAB CHEMISTRY METHOD 10/29/2024 4:21 PM [facility] BUN 16 5 - 25 mg/dL LAB CHEMISTRY METHOD 10/29/2024 4:21 PM [facility] Creatinine 0.86 0.70 - 1.30 mg/dL LAB CHEMISTRY METHOD 10/29/2024 4:21 PM [facility] eGFR 92 >=60 mL/min/1. 73m2 LAB CHEMISTRY METHOD 10/29/2024 4:21 PM [facility] Comment:Calculation based on the Chronic Kidney Disease Epidemiology Collaboration (CKD-EPI) equation refit without adjustment for race. BUN/Creatinine Ratio 18.6 LAB CHEMISTRY METHOD 10/29/2024 4:21 PM [facility] Calcium 9.2 8.5 - 10.5 mg/dL LAB CHEMISTRY METHOD 10/29/2024 4:21 PM [facility] AST (SGOT) 25 10 - 42 unit/L LAB CHEMISTRY METHOD 10/29/2024 4:21 PM [facility] ALT (SGPT) 39 10 - 60 unit/L LAB CHEMISTRY METHOD 10/29/2024 4:21 PM [facility] Alkaline Phosphatase 71 42 - 121 unit/L LAB CHEMISTRY METHOD 10/29/2024 4:21 PM [facility] Total Protein 6.6 6.0 - 8.0 g/dL LAB CHEMISTRY METHOD 10/29/2024 4:21 PM [facility] Albumin 3.9 3.2 - 5.0 g/dL LAB CHEMISTRY METHOD 10/29/2024 4:21 PM [facility] Total Bilirubin 0.4 0.0 - 1.4 mg/dL LAB CHEMISTRY METHOD 10/29/2024 4:21 PM [facility] Blood Venous blood specimen / Unknown Venipuncture / Unknown 10/29/2024 1:30 PM EDT 10/29/2024 1:30 PM EDT us Anuradha Espino NP LAB BLOOD ORDERABLES Fi nal Result [facility] [address] [place] [address], [place] [phone] from Last 3 Months Insurance [employer] - [place] MEDICARE ADVANTAGE Care Teams Belt Loop Machine Operator Relationship Specialty Start Date End Date Phil Robles DO [address] [place] [id number] PCP - General Internal Medicine 02/05/21
== END 2024-12-10 10:52 | disposition home or self-care (01) ==
LOC: HO.US 10:51
PROVIDERS: PCP Internal Medicine; Visit Provider Urology
DX: R39.12 Poor urinary stream (principal); N40.1 Benign prostatic hyperplasia with lower urinary tract symptoms
CPT/HCPCS: 76770

== ENCOUNTER → 2024-12-10 10:55 | Outpatient (BNV) | payer MEDICARE, SELFPAY | PROVIDERS: PCP Internal Medicine; Visit Provider Radiology Diagnostic Radiology | DX: N40.2 Nodular prostate without lower urinary tract symptoms (principal) | CPT/HCPCS: 76770 ==

== ENCOUNTER 2024-12-20 11:38 | Outpatient (AMB) | payer BC, SELFPAY ==
--- NOTE | 2024-12-20 11:53 | A.OFFVIS_ITS ---
Intake Visit Reasons: 3m/US/PSA/PVR Intake Note: Patient presents today for 3m/US/PSA/PVR * 12/03 Total PSA:2.28 * 12/10 Retroperitoneal US Urology Medication:None Blood Thinner:Aspirin Antibiotic Allergies:None PVR:19ml Allergies aspirin Allergy (Mild, Verified 12/20/24 11:54) sensitivity bee pollen (bee stings) Allergy (Mild, Verified 12/20/24 11:54) Swelling lisinopril Allergy (Mild, Verified 12/20/24 11:54) Unknown oxycodone (From OxyContin) Allergy (Mild, Verified 12/20/24 11:54) Unknown Medication List - Last Reconciled 12/20/24 by Brian Garcia MD aspirin 81 mg PO DAILY atorvastatin 40 mg PO BEDTIME Brace,wrist Left cock-up carpal tunnel splint, apply qhs, remove qam [id number] 50-325-40 mg 1 tab PO Q4H PRN finasteride (Proscar) 5 mg PO DAILY losartan 50 mg PO DAILY metformin 500 mg PO DAILY metoprolol succinate ER 12.5 mg PO DAILY ubrogepant 50 - 100 mg PO at onset of migraine, may repeat in 2 hours (max 200mg/day); 30 days vitamin E (dl, acetate) 450 mg PO DAILY 90 days HPI Comments Details: 12/20/24--Stefan is here for 3 month follow-up he was initially evaluated for testicular swelling on 09/20/2024. Here in follow-up had PSA done on 12/03/24 PSA was 2.28 a renal ultrasound to and 09/02/2024 within normal limits. History of Present Illness The patient is a 74-year-old male presenting for follow-up. The initial evaluation was conducted three months ago, and the patient has since undergone a PSA test and renal ultrasound. The PSA level was 2.28, which is within normal limits, and the renal ultrasound showed no significant abnormalities except for a small cyst in the left kidney. Ultrasound of the prostate was noted to have some nodularity, which could be due to its growth pattern. An MRI was considered to further evaluate the prostate, but due to the patient's claustrophobia and normal PSA levels, it was deemed unnecessary at this time. Will start proscar. Previously the patient also reported a curvature of the penis, which was initially noted during a previous visit. Vitamin E was prescribed to help with this condition, and the patient has been compliant with the medication regimen. The curvature appears to have improved slightly, and the patient is advised to continue with the vitamin E therapy. Results - PSA test: 2.28, within normal limits - Renal ultrasound: Small cyst in the left kidney, no significant abnormalities Plan 1. Testicular Swelling - Resolved 2. Prostate Nodularity - Proscar 5 mg daily, defer MRI for now 3. Curvature Of The Penis - Continue vitamin E therapy as it has shown some improvement. 09/20/24--Stefan here for second opinion on testicular swelling. - The patient is a 74-year-old male presenting with evaluation of testicular swelling. - The swelling was first noticed a couple of months ago during a bath, with the right side appearing much larger than the left, - An ultrasound was performed, revealing bilateral epididymal cysts and bilateral hydroceles, right hydrocele > left hydroceld - The patient reports no significant discomfort or pain associated with the swelling. - The patient has a history of urinary hesitancy, with medication prescribed in the past, but he has not been taking any medication for several years. - Patient states a cystoscopy was performed previously and no obstruction was found. - The patient complains of curvature to penis - The patient was informed about Peyronie's disease, which may cause curvature of the penis - The patient has not had a PSA test in over a year and expressed interest in having one ordered. Results - Ultrasound: Bilateral epididymal cysts, bilateral hydroceles greater on the right, normal testicular Doppler with good blood flow, no testicular masses. Plan - Monitor the hydrocele for changes in size or discomfort; no immediate intervention required unless symptoms worsen. - Prescribe vitamin E for potential Peyronie's disease to help with any plaque formation. - Order a PSA test, advising the patient to avoid ejaculation for 48 hours prior to the test to prevent fluctuations in results. - Schedule a follow-up in three months to reassess the patient's condition and review ultrasound results of the prostate area. [facility] Medical History Cervical spine degeneration Alopecia HTN (hypertension) Beta thalassemia Hemochromatosis Migraines HLD (hyperlipidemia) GERD (gastroesophageal reflux disease) DM (diabetes mellitus), type 2 Anxiety Office Procedures Post Void Residual Post Residual Void Post Void Residual (PVR): 19 [id number] Void Residual by ultrasound Results AMB Urinalysis, Automated UA Leukoctes 0 Sarah/uL Last Edit by Bridgette Harry on 12/20/24 16:14 UA Nitrite Negative Last Edit by Bridgette Harry on 12/20/24 16:14 UA Urobilinogen 0.2 mg/dL Last Edit by Bridgette Harry on 12/20/24 16:14 UA Protein 15 mg/dL Last Edit by Bridgette Harry on 12/20/24 16:14 UA pH 5.5 Last Edit by Bridgette Harry on 12/20/24 16:14 UA Blood 0 Bruce/uL Last Edit by Bridgette Harry on 12/20/24 16:14 UA Specific Startex 1.025 Last Edit by Bridgette Harry on 12/20/24 16:14 UA Ketone Negative Last Edit by Bridgette Harry on 12/20/24 16:14 UA Bilirubin 0 mg/dL Last Edit by Bridgette Harry on 12/20/24 16:14 UA Glucose 0 mg/dL Last Edit by Bridgette Harry on 12/20/24 16:14 Results Reviewed Results Reviewed: Laboratory Last Values Urine pH (Auto) 5.5 12/20/24 12:49 Specific Startex (Auto) 1.025 12/20/24 12:49 Urine Protein (Auto) 15 mg/dL 12/20/24 12:49 Glucose (UA)(Auto) 0 mg/dL 12/20/24 12:49 Urine Ketones (Auto) Negative 12/20/24 12:49 Urine Blood (Auto) 0 Bruce/uL 12/20/24 12:49 Urine Nitrite (Auto) Negative 12/20/24 12:49 Urine Bilirubin (Auto) 0 mg/dL 12/20/24 12:49 Urine Urobilinogen (Auto) 0.2 mg/dL 12/20/24 12:49 Leukocyte Esterase (Auto) 0 Sarah/uL 12/20/24 12:49 Date of Service: 12/10/24 CLINICAL HISTORY: R39.12 - Poor urinary stream US kidneys and bladder Comparison: None provided Findings: Right kidney 11.9 cm length. No significant focal abnormality. Left kidney 13.1 cm length. No significant focal abnormality. 1.1 cm x 1.2 cm midpole cyst. No bilateral hydronephrosis. Normal bilateral renal echogenicity. The urinary bladder is unremarkable. Prevoid volume 167 mL. Post void volume 14 mL. Bilateral ureteral jets visualized. Impression: No significant abnormalities Ultrasound prostate gland Comparison: None provided Findings: Heterogeneous enlarged prostate with calcification. Prostate measures 4.4 x 4.7 x 5.4 cm. Prostate volume: 59 mL. Prostate is multinodular in appearance. 1.7 cm discrete nodule noted. Consider MRI to assess. Impression: Enlarged heterogeneous nodular prostate Assessment & Plan Assessment & Plan (1) Weak urinary stream: Code(s): R39.12 - Poor urinary stream Category: Medical (2) BPH loc w urin obs/LUTS: Code(s): N40.1 - Benign prostatic hyperplasia with lower urinary tract symptoms Category: Medical (3) Penile disorder: Code(s): N48.9 - Disorder of penis, unspecified Category: Medical (4) Bilateral hydrocele: Code(s): N43.3 - Hydrocele, unspecified Category: Medical Plan Plan 1. Testicular Swelling - Resolved 2. Prostate Nodularity - Proscar 5 mg daily, defer MRI for now 3. Curvature Of The Penis - Continue vitamin E therapy as it has shown some improvement. Orders: Orders AMB Urinalysis Automated Today Z13.9 - Encounter for screening, unspecified AMB Post Void Residual by ultrasound Today N40.1 - Benign prostatic hyperplasia with lower urinary tract symptoms Medications: New finasteride (Proscar) 5 mg PO DAILY 90 tabs 3RF Refilled vitamin E (dl, acetate) 450 mg PO DAILY 90 caps 3RF 90 days Patient Instructions: The patient had an opportunity to ask questions regarding treatment plan. The patient expressed understanding and agreement with the above treatment plan. The patient is aware they should contact our office by phone for worsening of their current condition or the appearance of new symptoms. Compliance is encouraged with any medications and followup testing that is ordered. It is a privilege to be allowed the opportunity to participate in the urologic care of your patient. If you have any questions or concerns regarding treatment for the above conditions please do not hesitate to contact me. The office telephone contact is [phone]. This note is constructed in part using voice recognition software. While every effort has been made to ensure accuracy assistant winemaker errors may have been included. Yours sincerely, Brian Garcia MD Scribe Plan - Not visible on output: Patient was informed and verbally consented to the use of an ambient scribe for clinic note documentation during this visit. Coding Level of Care Code Est Pt Level 4 (22486) Diagnoses Weak urinary stream R39.12 BPH loc w urin obs/LUTS N40.1 Penile disorder N48.9 Bilateral hydrocele N43.3 CPT Codes Post Residual Void - PVR CPT Code: 42271-Epgn Void Residual by ultrasound ([id number])
--- OUTSIDE RECORDS SUMMARY | 2024-12-20 14:37 | XMS_ITS | Clinical Summary ---
Author Organization [facility] Address [address] [place] [address] Phone Care Team Providers Care Play Therapist Name Role Phone FranciscoPhil schneider Primary Care Provider [phone] Allergies Active Allergy Reactions Criticality Noted Date [...] symptoms are driven by anxiety. Beta thalassemia ([facility] V24, [facility] V28) 08/2017 Carpal tunnel syndrome 06/20/2017 Overview (12/23/2023): 07/2012 NCS DDD (degenerative disc disease), cervical 2017 Diabetes mellitus type 2 wit h neurological manifestations ([facility] V24, [facility] V28) 06/20/2017 GERD (gastroesophageal reflux disease) 8 [...] V2 4, CMS/HCC V28) 06/20/2017 DX:Beta thalassemia ([facility]) Hypertension 06/20/2017 DX:Hypertension Alopecia 06/20/2017 DX:Alopecia DDD [...] Fi nal Result [facility] [address] [place] [address], * Lipid panel with reflex to direct [...] EDT 10/29/2024 1:30 PM EDT Anuradha Espino TUBE MACHINE OPERATOR LAB BLOOD ORDERABLES Fi nal Result [facility] [address] [place] [address], * (ABNORMAL) CBC auto differential (10/29/2024 1:30 [...] % LAB HEMET[facility] MCV 68.9(L) 79.0 - 98.0 FL LAB HEMETOLOGY METHOD [facility]/29[facility]2024 [facility] MCH 21.8(L) 27.0 - 32.0 pcg LAB HEMETOLOGY METHOD 10/29/2024 3:06 PM [facility] MCHC 31.6(L) 32.0 - 37.0 g/dL LAB HEMETOLOGY METHOD 10/29/2024 3:06 PM [facility] RDW 15.6(H) 11.0 - 15.0 % LAB HEMETOLOGY METHOD 10/29/2024 3[facility] Platelets 240 130 - 400 K/mcL LAB HEMETOLOGY METHOD 10/29/2024 3:06 PM [facility] MPV 11.3(H) 7.0 - 11.0 FL LAB HEMETOLOGY METHOD 10/29/2024 3:06 PM [facility] NRBC 0.0 <1.0 % LAB HEMETOLOGY METHOD 10/29/2024 3:[facility] NRBC Absolute 0.00 <0.10 K/mcL LAB HEMETOLOGY METHOD 10/29/2024 [facility] Neutrophils Relative 63.0 % LAB HEMETOLOGY METHOD 10/29/2024 3:06 PM [facility] Lymphocytes Relative 26.7 % LAB HEMETOLOGY METHOD 10/29/2024 3:06 PM [facility] Monocytes Relative 7.6 % LAB HEMETOLOGY [...] Fi nal Result [facility] [address] [place] [address], [place] [phone] * (ABNORMAL) Microalbumin creatinine urine ratio (10/29/2024 [...] Fi nal Result [facility] [address] [place] [address], [place] [phone] * Thyroid stimulating hormone (10/29/2024 1:30 PM EDT) Pathologist [facility] TSH 1.21 0.40 - 4.00 mcIU/mL LAB CHEMISTRY METHOD 10/29/2024 5:50 PM EDT [facility] Blood Venous blood specimen / Unknown Venipuncture / Unknown 10/29/2024 1:30 PM EDT 10/29/2024 1:30 PM EDT us Anuradha Espino NP LAB BLOOD ORDERABLES Fi nal Result [facility] [address] [place] [address], [place] [phone] * (ABNORMAL) Hemoglobin A1c (10/29/2024 1:30 PM EDT) [facility] Hemoglobin A1C 7.0(H) <6.5 % LAB CHEMISTRY METHOD 10/29/2024 9:57 PM EDT [facility] Mean Bld Glu Estim. 154 mg/dL LAB CHEMISTRY METHOD 10/29/2024 9:57 PM T [facility] Blood Venous blood specimen / Unknown Venipuncture / Unknown 10/29/2024 1:30 PM EDT 10/29/2024 1:30 PM EDT us Anuradha Espino TUBE MACHINE OPERATOR LAB BLOOD ORDERABLES Fi nal Result [facility] [address] [place] [address], [place] [phone] * (ABNORMAL) Comprehensive metabolic panel (10/29/2024 1:30 PM EDT) [facility] Sodium 139 133 - 145 mmol/L LAB CHEMISTRY METHOD 10/29/2024 4:21 PM [facility] Potassium 4.7 3.5 - 5.5 mmol/L LAB CHEMISTRY METHOD 10/29/2024 4:21 PM [facility] Chloride 104 96 - 110 mmol/L LAB CHEMISTRY METHOD 10/29/2024 4:21 PM [facility] CO2 26 21 - 32 mmol/L LAB CHEMISTRY METHOD 10/29/2024 4:21 PM [facility] Anion Gap 9 3 - 11 LAB CHEMISTRY METHOD 10/29/2024 4:21 PM [facility] Glucose 171(H) 70 - 100 mg/dL LAB CHEMISTRY METHOD 10/29/2024 4:21 PM [facility] BUN 16 5 - 25 mg/dL LAB CHEMISTRY METHOD 10/29/2024 4:21 PM [facility] Creatinine 0.86 0.70 - 1.30 mg/dL LAB CHEMISTRY METHOD 10/29/2024 4:21 PM [facility] eGFR 92 >=60 mL/min/1. 73m2 LAB CHEMISTRY METHOD 10/29/2024 4:21 PM [facility] Comment:Calculation based on the Chronic Kidney Disease Epidemiology Collaboration (CKD-EPI) equation refit without adjustment for race. BUN/Creatinine Ratio 18.6 LAB CHEMISTRY METHOD 10/29/2024 4:21 PM [facility] Calcium 9.2 8.5 - 10.5 mg/dL LAB CHEMISTRY METHOD 10/29/2024 4:21 PM [facility] AST (SGOT) 25 10 - 42 unit/L LAB CHEMISTRY METHOD 10/29/2024 4:21 PM [facility] ALT (SGPT) 39 10 - 60 unit/L LAB CHEMISTRY METHOD 10/29/2024 4:21 PM [facility] Alkaline Phosphatase 71 42 - 121 unit/L LAB CHEMISTRY METHOD 10/29/2024 4:21 PM [facility] Total Protein 6.6 6.0 - 8.0 g/dL LAB CHEMISTRY METHOD 10/29/2024 4:21 PM [facility] Albumin 3.9 3.2 - 5.0 g/dL LAB CHEMISTRY METHOD 10/29/2024 4:21 PM [facility] Total Bilirubin 0.4 0.0 - 1.4 mg/dL LAB CHEMISTRY METHOD 10/29/2024 4:21 PM [facility] Blood Venous blood specimen / Unknown Venipuncture / Unknown 10/29/2024 1:30 PM EDT 10/29/2024 1:30 PM EDT us Anuradha Espino NP LAB BLOOD ORDERABLES Fi nal Result [facility] [address] [place] [address], [place] [phone] from Last 3 Months Insurance [employer] - [place] MEDICARE ADVANTAGE Care Teams Play Therapist Relationship Specialty Start Date End Date Phil Robles DO [address] [place] [id number] PCP - General Internal Medicine 02/05/21
--- OUTSIDE RECORDS SUMMARY | 2024-12-20 14:37 | XMS_ITS | Clinical Summary ---
Author Organization [facility] Address [address] [place] [phone] Phone Care Team Providers Care Instructional Support Technician Name Role Phone Franciscohaiann marieNicole garciaoliverio LANE Primary Care Provider [phone] Nicole Sotomayor MD Unavailable Allergies Active Allergy [...] 12.5 mg in evening. Active vitamin A 16047 UNIT capsule Take 2,400 Units by mouth. [...] day. [facility]. Weight is stable. Doing well with the meal plan and trying to stay active. Up-to-date with eye exam. History of nonproliferative diabetic retinopathy on the left eye which resolved as of report from retina specialist at [facility] on . Urine microalbumin to [...] Date/Time Associated Diagnosis Comments COMPREHENSIVE METABOLIC PANEL (CMP) Routine 06/13/2023 11:03 AM EDT Type 2 diabetes mellitus with other ophthalmic complication, without long-term current use of insulin BASIC METABOLIC PANEL (BMP) Routine 11/24/2022 3:41 PM EDT Mild nonproliferative diabetic retinopathy of both eyes without macular edema associated with type 2 diabetes mellitus from Last 3 Months or Most Recently Relevant to Health Maintenance Results * Comprehensive metabolic panel (06/13/2023 11:03 AM EDT) Blood us Anastacia Larose MD LAB BLOOD BKR ORDERABLES Final Result EXTERNAL NON-INTERFACED REF LAB * Basic metabolic panel (11/24/2022 3:41 PM EDT) Blood us Elise Crain PA-C LAB BLOOD BKR REHANA PALACIOS Final Result Performing Organization Address City/[facility]/ZIP Co de Phone Number [address] [phone] from Last 3 Months or Most Recently Relevant to Health Maintenance Insurance MEDICARE PPO BLUE REPLACEMENT MEDICARE PPO BLUE REPLACEMENT MEDICARE PPO BLUE REPLACEMENT MEDICARE PPO BLUE REPLACEMENT MEDICARE PPO BLUE REPLACEMENT MEDICARE PPO BLUE REPLACEMENT MEDICARE PPO BLUE REPLACEMENT MEDICARE PPO BLUE REPLAC[place] BL[place] RE[place]ACEMENT Care Teams Instructional Support Technician Relationship Specialty Start Date End Date Phil Robles DO [address] [place] [phone] PCP - General Internal Medicine 07/24/18 Nicole Sotomayor MD [address] [place] [phone] Ophthalmology 04/17/20 Additional Source Comments The information contained in this document represents components of the legal health record. It is not the complete legal health record.[facility]
== END 2024-12-20 12:31 | disposition home or self-care (01) ==
LOC: HO.HUSH 11:39
PROVIDERS: PCP Internal Medicine; Visit Provider Urology
DX: N40.1 Benign prostatic hyperplasia with lower urinary tract symptoms (principal); N48.9 Disorder of penis, unspecified; N43.3 Hydrocele, unspecified; Z13.9 Encounter for screening, unspecified
CPT/HCPCS: 99214

== ENCOUNTER → 2024-12-20 11:38 | Outpatient (BNVA) | payer BC, SELFPAY | PROVIDERS: PCP Internal Medicine; Visit Provider Urology | DX: N40.1 Benign prostatic hyperplasia with lower urinary tract symptoms (principal) | CPT/HCPCS: 51798; 81003 ==